=== PATIENT | female | born 1955 | race Two or more races ===

== ENCOUNTER → 2018-05-13 | Outpatient (CLI) | payer MEDICAID | END | disposition home or self-care (01) | LOC: MAMMO 09:59 | DX: Z12.31 Encounter for screening mammogram for malignant neoplasm of breast (principal) | CPT/HCPCS: 77067 ==

== ENCOUNTER 2021-09-02 21:59 | Emergency (ER) | payer MEDICARE, OTHER, MEDICAID ==
[~2021-09-02] VITALS: Ht 175.3 cm; Wt 97.0 kg
[2021-09-02 22:14] VITALS: BP 156/86
[2021-09-03 03:36] LABS: BASOPHILS % 0.7 % (0.0-2.0); EOSINOPHILS % 1.7 % (0.0-5.0); HEMATOCRIT. 40.1 % (36.0-48.0); HEMOGLOBIN. 13.1 g/dL (12.0-16.0); LYMPHOCYTES % 40.8 % (20.0-50.0); MEAN CORPUSCULAR HEMOGLOBIN 27.5 pg (28.0-32.0); MEAN CORPUSCULAR VOLUME 84.1 fL (81.0-99.0); MEAN PLATELET VOLUME 6.7 fl (7.4-10.4); MONOCYTES % 7.4 % (2.0-8.0); NEUTROPHILS % 49.4 % (40.0-76.0); PLATELET 314 x1000/uL (130-400); RED BLOOD CELL COUNT 4.77 mill/uL (4.2-5.4); RED CELL DISTRIBUTION WIDTH 15.4 % (11.6-14.6)
[2021-09-03 03:59] LABS: CHLORIDE 108 mEq/L (98-107)
[2021-09-03 04:04] LABS: ETHANOL BLOOD < 10 mg/dL
[2021-09-03 04:30] LABS: CLARITY URINE CLEAR (CLEAR); COLOR URINE YELLOW (YELLOW); KETONES URINE NEGATIVE (NEGATIVE); LEUKOCYTE ESTERASE URINE NEGATIVE (NEGATIVE); NITRITE URINE NEGATIVE (NEGATIVE); OCCULT BLOOD URINE NEGATIVE (NEGATIVE); PROTEIN URINE NEGATIVE (NEGATIVE); SPECIFIC GRAVITY URINE 1.023 (1.005-1.030); UROBILINOGEN URINE 0.2 E.U./dL (0.2-1.0)
== END 2021-09-03 06:28 | disposition home or self-care (01) ==
LOC: ER 22:09
DX: R00.2 Palpitations (principal); I48.91 Unspecified atrial fibrillation; I10 Essential (primary) hypertension
CPT/HCPCS: 36415; 71045; 80053; 80320; 81003; 84484; 85025; 93005; 99285; G0480

== ENCOUNTER 2022-02-23 17:59 | Emergency (ER) | payer MEDICARE, OTHER ==
[~2022-02-23] VITALS: Ht 175.3 cm; Wt 96.0 kg
[~2022-02-23 17:59] MED LIST: APIX5TAB PO; ASCO100T12 PO; ASPI-1497 MT; COR3 PO; LOSA50TA41 MT; MAGN296S8 MT; MULT-1146 MT
[2022-02-23 18:28] VITALS: BP 134/53
[2022-02-23 23:38] LABS: BASOPHILS % 0.6 % (0.0-2.0); EOSINOPHILS % 1.3 % (0.0-5.0); HEMATOCRIT. 39.2 % (36.0-48.0); LYMPHOCYTES % 39.9 % (20.0-50.0); MEAN CORPUSCULAR HEMOGLOBIN 27.7 pg (28.0-32.0); MEAN CORPUSCULAR VOLUME 83.6 fL (81.0-99.0); MEAN PLATELET VOLUME 6.9 fl (7.4-10.4); MONOCYTES % 6.5 % (2.0-8.0); NEUTROPHILS % 51.7 % (40.0-76.0); PLATELET 335 x1000/uL (130-400); RED BLOOD CELL COUNT 4.69 mill/uL (4.2-5.4); RED CELL DISTRIBUTION WIDTH 14.5 % (11.6-14.6)
[2022-02-23 23:41] LABS: CHLORIDE 108 mEq/L (98-107)
[2022-02-24 02:34] LABS: CLARITY URINE CLEAR (CLEAR); COLOR URINE YELLOW (YELLOW); KETONES URINE TRACE (NEGATIVE); LEUKOCYTE ESTERASE URINE 1+ (NEGATIVE); NITRITE URINE NEGATIVE (NEGATIVE); OCCULT BLOOD URINE NEGATIVE (NEGATIVE); PH URINE 5.5 (4.5-8.0); PROTEIN URINE NEGATIVE (NEGATIVE); UROBILINOGEN URINE 0.2 E.U./dL (0.2-1.0)
[2022-02-24 02:47] LABS: *AMPHETAMINES SCREEN URINE NEGATIVE (NEGATIVE); *BARBITURATES SCREEN URINE NEGATIVE (NEGATIVE); *BENZODIAZEPINES SCREEN URINE NEGATIVE (NEGATIVE); *COCAINE SCREEN URINE NEGATIVE (NEGATIVE); CANNABINOID URINE SCREEN NEGATIVE (NEGATIVE); METHADONE URINE SCREEN NEGATIVE (NEGATIVE); OPIATES URINE SCREEN NEGATIVE (NEGATIVE); PHENCYCLIDINE URINE SCREEN NEGATIVE (NEGATIVE)
== END 2022-02-24 03:30 | disposition home or self-care (01) ==
LOC: ER 17:59
DX: I10 Essential (primary) hypertension (principal); R42 Dizziness and giddiness; R51.9 Headache, unspecified
CPT/HCPCS: 36415; 71045; 80053; 80305; 81003; 83880; 84484; 85025; 93005; 99285

== ENCOUNTER 2023-02-05 22:14 | Emergency (ER) | payer MEDICARE, MEDICAID ==
[~2023-02-05] VITALS: Ht 165.1 cm; Wt 98.0 kg
[2023-02-05 23:01] LABS: BASOPHILS % 0.7 % (0.0-2.0); EOSINOPHILS % 1.3 % (0.0-5.0); HEMATOCRIT. 37.8 % (36.0-48.0); HEMOGLOBIN. 12.6 g/dL (12.0-16.0); LYMPHOCYTES % 40.4 % (20.0-50.0); MEAN CORPUSCULAR HEMOGLOBIN 27.9 pg (28.0-32.0); MEAN CORPUSCULAR VOLUME 83.5 fL (81.0-99.0); MEAN PLATELET VOLUME 6.8 fl (7.4-10.4); MONOCYTES % 6.4 % (2.0-8.0); NEUTROPHILS % 51.2 % (40.0-76.0); PLATELET 319 x1000/uL (130-400); RED BLOOD CELL COUNT 4.53 mill/uL (4.2-5.4); RED CELL DISTRIBUTION WIDTH 14.5 % (11.6-14.6)
[2023-02-05 23:08] LABS: CHLORIDE 109 mEq/L (98-107)
[2023-02-05] MEDS ORDERED: DIPHENHYDRAMINE 50MG/ML VIAL IV ONE (23:15)
[2023-02-05 23:34] LABS: CLARITY URINE CLEAR (CLEAR); COLOR URINE YELLOW (YELLOW); KETONES URINE NEGATIVE (NEGATIVE); LEUKOCYTE ESTERASE URINE 1+ (NEGATIVE); NITRITE URINE NEGATIVE (NEGATIVE); OCCULT BLOOD URINE NEGATIVE (NEGATIVE); PROTEIN URINE NEGATIVE (NEGATIVE); SPECIFIC GRAVITY URINE 1.012 (1.005-1.030); UROBILINOGEN URINE 0.2 E.U./dL (0.2-1.0)
[2023-02-06 01:52] VITALS: BP 142/79
[2023-02-06] MEDS ORDERED: DIPH25CA83 MT (01:53)
[2023-02-06] MEDS ORDERED: FAMO-135 MT (01:53)
[2023-02-06] MEDS ORDERED: P20 MT (01:53)
== END 2023-02-06 02:02 | disposition home or self-care (01) ==
LOC: ER 22:14
DX: R07.89 Other chest pain (principal); L50.9 Urticaria, unspecified
CPT/HCPCS: 36415; 71045; 80053; 81003; 83880; 84484; 85025; 93005; 96374; 99285; J1200

== ENCOUNTER 2023-04-14 11:13 | Emergency (ER) | payer MEDICAID, MEDICARE ==
[~2023-04-14] VITALS: Ht 165.1 cm; Wt 100.0 kg
[~2023-04-14 11:13] MED LIST changes: +DIPH25CA83 MT; +FAMO-135 MT; +P20 MT
[2023-04-14 11:21] VITALS: BP 123/93; PULSE 79; RESP 20; TEMP 97.9; O2SAT 99
[2023-04-14] MEDS ORDERED: HYDR-3735 MT (13:26)
[2023-04-14] MEDS ORDERED: TC1U15 TP (13:26)
[2023-04-14] MEDS ORDERED: CEPH500T MT (13:26)
[2023-04-14] MEDS ORDERED: CEPHALEXIN 250MG CAPSULE PO ONE (13:30)
[2023-04-14] MEDS ORDERED: CEPHALEXIN 250MG CAPSULE PO NR (13:45)
== END 2023-04-14 14:09 | disposition home or self-care (01) ==
LOC: ER 11:28
DX: S40.862A Insect bite (nonvenomous) of left upper arm, initial encounter (principal); I10 Essential (primary) hypertension; W57.XXXA Bitten or stung by nonvenomous insect and other nonvenomous arthropods, initial encounter; Y93.89 Activity, other specified; Y92.89 Other specified places as the place of occurrence of the external cause; Y99.8 Other external cause status; Z79.899 Other long term (current) drug therapy
CPT/HCPCS: 99283

== ENCOUNTER 2023-10-09 15:48 | Emergency (ER) | payer MEDICARE ==
[~2023-10-09] VITALS: Ht 175.3 cm; Wt 99.7 kg
[~2023-10-09 15:48] MED LIST changes: +CEPH500T MT; +HYDR-3735 MT; +TC1U15 TP
[2023-10-09 16:17] VITALS: BP 158/81; PULSE 76; RESP 16; O2SAT 99
[2023-10-09] MEDS ORDERED: ACETAMINOPHEN 325MG TABLET PO ONE (19:15)
[2023-10-09] MEDS ORDERED: AMOX-494 MT (19:20)
[2023-10-09] MEDS ORDERED: HYDR-4001 MT (19:20)
[2023-10-09 19:44] VITALS: TEMP 98.2
== END 2023-10-09 19:46 | disposition home or self-care (01) ==
LOC: ER 15:48
DX: K08.89 Other specified disorders of teeth and supporting structures (principal); M19.90 Unspecified osteoarthritis, unspecified site; I10 Essential (primary) hypertension
CPT/HCPCS: 99283